=== PATIENT | male | born 1945 | race Caucasian/White ===

== ENCOUNTER 2019-09-10 18:53 | Emergency (ER) | payer MEDICARE ==
[~2019-09-10] VITALS: Ht 172.7 cm; Wt 77.4 kg
[2019-09-10] MEDS ORDERED: IV RINGERS SOLUTION,LACTATED 1,000 ML IV ONE (20:15)
[2019-09-10 20:21] LABS: BASO # 0.1 x10^3/uL (0.0-0.2); BASO % 2 % (0-3); EOS % 1 % (0-3); HEMATOCRIT 32.6 % (39.0-53.0); LYMPH # 0.3 x10^3/uL (1.0-4.8); LYMPH % 8 % (24-48); MEAN CORPUSCULAR HEMOGLOBIN 23 pg (25-35); MEAN CORPUSCULAR HGB CONC 31 g/dL (31-37); MEAN CORPUSCULAR VOLUME 74 fL (79-100); MONO # 0.9 x10^3/uL (0.0-1.1); MONO % 20 % (0-9); NEUT # 3.1 x10^3uL (1.8-7.7); NEUT % 70 % (31-73); PLATELET COUNT 174 x10^3/uL (140-400); RED BLOOD COUNT 4.43 x10^6/uL (4.30-5.70); RED CELL DISTRIBUTION WIDTH 17.3 % (11.5-14.5); WHITE BLOOD COUNT 4.5 x10^3/uL (4.0-11.0)
[2019-09-10] MEDS ORDERED: IV RINGERS SOLUTION,LACTATED 1,000 ML IV SCH (20:21)
--- NOTE | 2019-09-10 20:21 | PHYS DOC ---
Past History Past Medical History: CAD, Diverticulitis, High Cholesterol, Hypertension, Other Additional Past Medical Histor: balance problems Past Surgical History: Other Additional Past Surgical Histo: cardiac stents 10 yrs ago Alcohol Use: Heavy Additional Alcohol Information: 3-4 beers a day General Adult EDM: Chief Complaint: COUGH HPI: HPI: ".. I think I got a virus or maybe that COVID.. I just drove here from [facility]. I live in [facility].. but I drove through [place].. and then here.. I got a farm here in [facility].. but I ve been coughing.. and I worried I got the COVID.. and I want the chloroquine drug to cure it.. Patient is a 74 year old MALE who presents with hx of fever that started after driving here from [facility] , through [place]. Patient states cough is been non productive. Has had subjective history of fever and chills. Patient denies any specific ill contacts. Patient denies any specific COVID risk other than living in [place] and driving to the [facility] on the way here. Patient has had history of bronchitis in the past. Patient denies any history of immunosuppression. Patient does admit to occasional marijuana use. Patient does not follow-up with a doctor locally. Review of Systems: Review of Systems: Constitutional: History of fever or chills Eyes: Denies change in visual acuity HENT: Denies nasal congestion or sore throat Respiratory: History of a nonproductive cough and occasional wheeze Cardiovascular: Denies chest pain or edema GI: Denies abdominal pain, nausea, vomiting, bloody stools or diarrhea : Denies dysuria Musculoskeletal: Denies back pain or joint pain Integument: Denies rash Neurologic: Denies headache, focal weakness or sensory changes Endocrine: Denies polyuria or polydipsia Lymphatic: Denies swollen glands Psychiatric: Denies depression or anxiety Heart Score: HEART Score for Chest Pain: HEART Score for Chest Pain Response (Comments) Value History Slighlty/Non-Suspicious 0 ECG Nonspecific Repolarizatio 1 Age >45 - < 65 1 Risk Factors 1 or 2 Risk Factors 1 Troponin < Normal Limit 0 Total 3 Risk Factors: Risk Factors: DM, Current or recent (<one month) smoker, HTN, HLP, family history of CAD, obesity. Risk Scores: Score 0 - 3: 2.5% MACE over next 6 weeks - Discharge Home Score 4 - 6: 20.3% MACE over next 6 weeks - Admit for Clinical Observation Score 7 - 10: 72.7% MACE over next 6 weeks - Early Invasive Strategies Family History: Family History: Noncontributory to presentation Current Medications: Current Meds: Current Medications Medications (Trade) Dose Ordered Sig/Kiki Start Time Stop Time Status Last Admin Dose Admin Lactated Ringer's 1,000 ml @ 1,000 mls/hr 1X ONCE 09/10/19 20:15 09/10/19 21:14 09/10/19 20:12 1,000 MLS/HR Allergies: Allergies: Allergies Uncoded Allergies Type Severity Reaction Last Updated Verified lactose intolerance Adverse Reaction Unknown 09/10/19 Physical Exam: PE: Constitutional: no acute distress, non-toxic appearance. [] HENT: Normocephalic, atraumatic, bilateral external ears normal, oropharynx moist, no oral exudates, nose normal. [] Eyes: PERRLA, EOMI, conjunctiva normal, no discharge. [] Neck: Normal range of motion, no tenderness, supple, no stridor. [] Cardiovascular:Heart rate regular rhythm, no murmur [] Lungs & Thorax: Bilateral breath sounds equal apex with few scattered wheezes on auscultation [] Abdomen: Bowel sounds normal, soft, no tenderness, no masses, no pulsatile masses. [] Skin: Warm, dry, no erythema, no rash. [] Back: No tenderness, no CVA tenderness. [] Extremities: No tenderness, no cyanosis, no clubbing, ROM intact, no edema. [] No cording appreciated Neurologic: Alert and oriented X 3, normal motor function, normal sensory function, no focal deficits noted. [] Psychologic: Affect anxious, judgement normal, mood normal. [] Current Patient Data: Vital Signs: Vital Signs Date Time Temp Pulse Resp B/P (MAP) Pulse Ox O2 Delivery O2 Flow Rate FiO2 09/10/19 18:53 99.5 64 20 177/102 (127) 99 Room Air EKG: EKG: My interpretation EKG shows a sinus rhythm at 63 bpm. Does have an occasional PAC. But no findings acute STEMI or contralateral changes [] Radiology/Procedures: Radiology/Procedures: [][address] [address] IMAGING REPORT Signed PATIENT: JAMILAH NEUMANN V ACCOUNT: [id number] : 1945 LOCATION: ER AGE: 74 SEX: M EXAM STATUS: REG ER ORD. PHYSICIAN: EJ LEI MD REASON: Dyspnea, cough, right sided chest pain. Hx: rt rib fractures PROCEDURE: CT ANGIOGRAPHY CHEST Exam: CT of chest with contrast INDICATION: Dyspnea, cough TECHNIQUE: Sequential axial images through the chest obtained following the administration of 100 mL of Omni 350 IV contrast. Sagittal and coronal reformatted images were reconstructed from the axial data and reviewed. 3-D reformatted images were reconstructed from the axial data and reviewed. Comparisons: 09/10/2019 FINDINGS: Visualized portions of the thyroid are unremarkable. No enlarged mediastinal lymph nodes are identified. Heart size is normal. Mild coronary artery calcifications are noted. Thoracic aorta has a normal course and caliber. Pulmonary artery is not enlarged. No pulmonary embolus identified within the main, lobar or segmental pulmonary arteries. Airways are patent. No consolidation or pneumothorax. No suspicious lung nodules are identified. No pleural effusion or thickening. Visualized upper abdomen is unremarkable. No suspicious osseous lesions or acute fractures. IMPRESSION: 1. No pulmonary embolus identified within the main, lobar or segmental pulmonary arteries. 2. Mild coronary artery calcifications. Exposure: One or more of the following in the visualized dose reduction techniques were utilized for this examination: 1. Automated exposure control 2. Adjustment of the MA and/or KV according to patient size 3. Use of iterative of reconstructive technique Electronically signed by: Henry Brennan MD (09/10/2019 11:50 PM) [id number] DICTATED AND SIGNED BY: HENRY BRENNAN MD DATE: 09/10/19 6355 Course & Med Decision Making: Course & Med Decision Making Pertinent Labs and Imaging studies reviewed. (See chart for details) Patient encouraged to follow-up with primary care here locally. Reviewed labs w ith patient. Patient encouraged to follow-up cultures pending here. Patient encouraged to self isolate. Patient must wear a mask covering nose and mouth. Patient to push fruit juices for his hypokalemia. Patient encouraged to follow- up his findings of hypochromic microcytic anemia. Patient use MDI 2 puffs 4 times a day. Patient take Zithromax 250 mg a day. Currently pt. declines admission 1. Viral Syndrome 2. Anemia Hypochromic Microcytic= hemoglobin 10 3. Hypokalemia 3.[address] Use 5[address] findings of Calcification coronary arteries [] Dragon Disclaimer: Dragon Disclaimer: This electronic medical record was generated, in whole or in part, using a voice recognition dictation system. Departure Departure: Disposition: HOME/RESIDENCE PRIOR TO ADM Condition: STABLE Referrals: PCP,UNKNOWN (PCP) Scripts Azithromycin (ZITHROMAX) 250 Mg Tablet 250 MG PO DAILY for ANTI-BIOTIC for 5 Days, #5 TAB 0 Refills Prov: EJ LEI MD 09/10/19 Justification of Admission: Justification of Admission: Justification of Admission Dx: N/A Dragon Disclaimer This chart was dictated in whole or in part using Voice Recognition software in a busy, high-work load, and often noisy Emergency Department environment. It may contain unintended and wholly unrecognized errors or omissions. Dragon Disclaimer This chart was dictated in whole or in part using Voice Recognition software in a busy, high-work load, and often noisy Emergency Department environment. It may contain unintended and wholly unrecognized errors or omissions. EJ LEI MD Sep 10, 2019 20:21
[2019-09-10 20:23] LABS: CALCIUM 8.9 mg/dL (8.5-10.1); CREATININE 1.1 mg/dL (0.7-1.3); GFR 65.1
[2019-09-10 20:29] LABS: ALBUMIN 4.1 g/dL (3.4-5.0); ALBUMIN/GLOBULIN RATIO 1.3 (1.0-1.7); TOTAL BILIRUBIN 0.7 mg/dL (0.2-1.0); TOTAL PROTEIN 7.3 g/dL (6.4-8.2)
[2019-09-10] MEDS ORDERED: KETOROLAC 30 MG/ML VIAL. IVP ONE (20:30)
[2019-09-10] MEDS ORDERED: ONDANSETRON PF 4 MG/2 ML VIAL. IVP ONE (20:30)
[2019-09-10] MEDS ORDERED: FAMOTIDINE 20 MG/2 ML VIAL IVP ONE (20:30)
[2019-09-10 21:53] LABS: % LYMPHS 5 % (24-48); % MONOS 13 % (0-10); % SEGS 82 % (35-66); PLT ESTIMATE ADEQUATE (ADEQUATE)
--- NOTE | 2019-09-10 21:53 | EKG ---
[address] [address] Test Date: 2019-09-10 Test Time: 19:49:18 Pat Name: JAMILAH NEUMANN Department: Room: Gender: M Hammer Adjuster: : 1945 Requested By: EJ LEI Order Number: [id number] Reading MD: Measurements Intervals [place]ridge Rate: 63 P: -59 OR: 130 QRS: 26 QRSD: 94 T: 26 QT: 424 QTc: 437 Interpretive Statements SINUS RHYTHM ATRIAL PREMATURE COMPLEX(ES) OTHERWISE NORMAL ECG RI6.02 No previous ECG available for comparison
[2019-09-10 21:54] LABS: ANISOCYTOSIS SLIGHT; HYPOCHROMIA SLIGHT; MICROCYTOSIS SLIGHT
[2019-09-10 22:15] LABS: BARBITURATES NEG (NEG); BENZODIAZEPINES NEG (NEG); CANNABINOIDS POS (NEG); COCAINE NEG (NEG); METHADONE NEG (NEG); OPIATES NEG (NEG); PHENCYCLIDINE NEG (NEG)
[2019-09-10 22:16] LABS: AMPHETAMINE/METHAMPHETAMINE NEG (NEG)
[2019-09-10 22:20] LABS: BILIRUBIN,URINE NEG (NEG); CLARITY,URINE CLEAR; COLOR,URINE YELLOW; GLUCOSE,URINE NEG (NEG); NITRITE,URINE NEG (NEG); RBC,URINE 0 /HPF (0-2); UROBILINOGEN,URINE 0.2 mg/dL (0.2 mg/dL)
[2019-09-10 22:21] LABS: BACTERIA,URINE 0 /HPF (0-FEW); WBC,URINE 0 /HPF (0-4)
[2019-09-10] MEDS ORDERED: CONTRAST GIVEN. MC PRN (22:45)
--- NOTE | 2019-09-10 22:51 | RAD ---
Two-view abdomen radiographs 09/10/2019 CLINICAL HISTORY: Right-sided abdominal pain. Supine and erect AP digital radiographs of the abdomen/pelvis were obtained. The lung bases are clear. The abdominal bowel gas pattern is nonobstructive. No free air is seen. No radiopaque calculus is noted. Calcifications are seen within the pelvis consistent with phleboliths. Atherosclerotic calcification of the abdominal aorta and its branches is noted. Degenerative changes are seen involving the lower thoracic and throughout the lumbar spine along with both hips. IMPRESSION: Nonobstructive bowel gas pattern. Electronically signed by: Ward oRdriguez MD (09/10/2019 10:48 PM) [id number]
--- NOTE | 2019-09-10 22:52 | RAD ---
PA and lateral chest radiograph 09/10/2019 CLINICAL HISTORY: Right-sided chest pain PA and lateral digital radiographs of chest were obtained. The cardiac silhouette is normal in size. The thoracic aorta is tortuous. Atherosclerotic calcification of the thoracic aorta is seen. No acute pulmonary infiltrate is seen. No pleural effusion or pneumothorax is noted. Old healed right-sided rib fractures are seen. Degenerative changes are seen involving the thoracic spine. IMPRESSION: No acute abnormality is seen. Electronically signed by: Ward Rodriguez MD (09/10/2019 10:49 PM) [id number]
[2019-09-10] MEDS ORDERED: AZIT250T PO (22:59)
[2019-09-10] MEDS ORDERED: AZITHROMYCIN 250 MG TABLET. PO ONE (23:00)
[2019-09-10] MEDS ORDERED: IOHEXOL 350 MG/ML 100 ML VIAL. IV ONE (23:00)
[2019-09-10] MEDS ORDERED: ALBUTEROL SULFATE 8GM INHALER. INH ONE (23:00)
--- NOTE | 2019-09-10 23:53 | RAD ---
Exam: CT of chest with contrast INDICATION: Dyspnea, cough TECHNIQUE: Sequential axial images through the chest obtained following the administration of 100 mL of Omni 350 IV contrast. Sagittal and coronal reformatted images were reconstructed from the axial data and reviewed. 3-D reformatted images were reconstructed from the axial data and reviewed. Comparisons: 09/10/2019 FINDINGS: Visualized portions of the thyroid are unremarkable. No enlarged mediastinal lymph nodes are identified. Heart size is normal. Mild coronary artery calcifications are noted. Thoracic aorta has a normal course and caliber. Pulmonary artery is not enlarged. No pulmonary embolus identified within the main, lobar or segmental pulmonary arteries. Airways are patent. No consolidation or pneumothorax. No suspicious lung nodules are identified. No pleural effusion or thickening. Visualized upper abdomen is unremarkable. No suspicious osseous lesions or acute fractures. IMPRESSION: 1. No pulmonary embolus identified within the main, lobar or segmental pulmonary arteries. 2. Mild coronary artery calcifications. Exposure: One or more of the following in the visualized dose reduction techniques were utilized for this examination: 1. Automated exposure control 2. Adjustment of the MA and/or KV according to patient size 3. Use of iterative of reconstructive technique Electronically signed by: Henry Lockhart MD (09/10/2019 11:50 PM) [id number]
[2019-09-11 00:33] VITALS: BP 133/72
[2019-09-11] MEDS ORDERED: POTASSIUM CHLORIDE 20 MEQ TABLET.ER. PO ONE (01:30)
--- NOTE | 2019-09-13 10:01 | NUR ---
IP: attempt to notify of COVID results, left message to call back.
--- NOTE | 2019-09-13 10:08 | NUR ---
IP: notified patient of COVID result.
== END 2019-09-11 01:00 | disposition home or self-care (01) ==
LOC: ER 18:53
DX: B34.9 Viral infection, unspecified (principal); D50.9 Iron deficiency anemia, unspecified; E87.6 Hypokalemia; Z20.828 Contact with and (suspected) exposure to other viral communicable diseases; I25.10 Atherosclerotic heart disease of native coronary artery without angina pectoris; E78.00 Pure hypercholesterolemia, unspecified; I10 Essential (primary) hypertension; F10.20 Alcohol dependence, uncomplicated; Z91.011 Allergy to milk products; Y90.9 Presence of alcohol in blood, level not specified
CPT/HCPCS: 36415; 71046; 71275; 74019; 80053; 80307; 81001; 83605; 83690; 84484; 85007; 85025; 85610; 85730; 87040; 93005; 94640; 96361; 96374; 96375; 99285; J0456; J1885; J2405; J3490; J7120; J7613; Q9967; U0003; 94664